=== PATIENT | male | born 1990 ===

== ENCOUNTER 2020-04-05 09:29 | Outpatient (REF) | payer OTHER, MEDICAID, SELFPAY ==
--- NOTE | 2020-04-05 | US_ITS ---
EXAMINATION: US ABDOMEN COMPLETE CLINICAL INFORMATION: Right upper quadrant pain. COMPARISON: None. TECHNIQUE: Real-time imaging of the abdominal viscera. FINDINGS: PANCREAS: The pancreas is partially obscured by overlying gas. ABDOMINAL AORTA: The proximal, mid, and distal segments are normal in caliber. INFERIOR VENA CAVA: Visualized portions are normal. LIVER: Normal. The liver is normal in size. The liver contour is normal. Parenchymal echogenicity is normal. No focal hepatic lesion. There is no intrahepatic biliary duct dilatation seen. GALLBLADDER: Normal. The gallbladder is physiologically distended without evidence of stones, sludge, polyps, wall thickening or pericholecystic fluid. COMMON BILE DUCT: Normal in caliber measuring 0.3 cm in diameter. RIGHT KIDNEY: There is an echogenic nonobstructive stone midpole measures 0.4 x 0.4 cm. No hydronephrosis or focal parenchymal lesions. The kidney measures 10.1 cm in maximum dimension. LEFT KIDNEY: A hypertrophied column of Drake is noted. No hydronephrosis. No renal calculi or focal parenchymal lesions. The kidney measures 10.1 cm in maximum dimension. SPLEEN: Normal. The spleen measures 9.2 cm in maximum dimension. FREE FLUID: None. US/US abdomen complete IMPRESSION: Nonobstructive echogenic stone midpole right kidney. Hypertrophied column of Drake left kidney. The rest of the abdominal ultrasound is unremarkable.
== END 2020-04-05 09:30 | disposition home or self-care (01) ==
LOC: HO.US 09:29
PROVIDERS: Visit Provider Nurse Practitioner
DX: R10.11 Right upper quadrant pain (principal)
CPT/HCPCS: 76700

== ENCOUNTER 2020-06-03 17:25 | Outpatient (REF) | payer MEDICAID, OTHER, SELFPAY | END 2020-06-03 17:26 | disposition home or self-care (01) | LOC: HO.LAB 17:25 | PROVIDERS: Visit Provider Internal Medicine | DX: Z20.822 Contact with and (suspected) exposure to COVID-19 (principal) | CPT/HCPCS: 36415; C9803; U0003 ==

== ENCOUNTER 2020-06-11 10:24 | Outpatient (REF) | payer MEDICAID, OTHER, SELFPAY | END 2020-06-11 10:25 | disposition home or self-care (01) | LOC: HO.LAB 10:24 | PROVIDERS: Visit Provider Internal Medicine | DX: Z20.822 Contact with and (suspected) exposure to COVID-19 (principal) | CPT/HCPCS: 36415; C9803; U0003 ==

== ENCOUNTER 2020-07-11 15:24 | Outpatient (REF) | payer MEDICAID, OTHER, SELFPAY | END 2020-07-11 15:25 | disposition home or self-care (01) | LOC: HO.LAB 15:24 | PROVIDERS: Visit Provider Internal Medicine | DX: Z20.822 Contact with and (suspected) exposure to COVID-19 (principal) | CPT/HCPCS: 36415; C9803; U0003; U0005 ==

== ENCOUNTER 2020-07-27 08:54 | Outpatient (REF) | payer MEDICAID, SELFPAY ==
--- NOTE | ~2020-07-27 | US_ITS ---
EXAMINATION: US ABDOMEN COMPLETE CLINICAL INFORMATION: Left-sided abdominal pain. COMPARISON: Ultrasound abdomen 04/05/2020. TECHNIQUE: Real-time imaging of the abdominal viscera. FINDINGS: PANCREAS: The head and body of pancreas is homogeneous in echotexture. The tail is obscured by overlying gas. ABDOMINAL AORTA: The proximal, mid, and distal segments are normal in caliber. INFERIOR VENA CAVA: Visualized portions are normal. LIVER: Normal. The liver is normal in size. The liver contour is normal. Parenchymal echogenicity is normal. No focal hepatic lesion. There is no intrahepatic biliary duct dilatation seen. GALLBLADDER: The gallbladder wall thickness measures 0.2 cm. The gallbladder is physiologically distended without evidence of stones, sludge, polyps, wall thickening or pericholecystic fluid. COMMON BILE DUCT: Normal in caliber measuring 0.3 cm in diameter. RIGHT KIDNEY: Normal. No hydronephrosis. No renal calculi or focal parenchymal lesions. The kidney measures 10.8 cm in maximum dimension. LEFT KIDNEY: Normal. No hydronephrosis. No renal calculi or focal parenchymal lesions. The kidney measures 10.6 cm in maximum dimension. SPLEEN: Normal. The spleen measures 10.3 cm in maximum dimension. FREE FLUID: None. US/US abdomen complete IMPRESSION: Unremarkable complete abdominal ultrasound. No right renal echogenic calculi seen as was noted on the previous study.
== END 2020-07-27 08:55 | disposition home or self-care (01) ==
LOC: HO.US 08:54
PROVIDERS: PCP Registered Nurse; Visit Provider Registered Nurse
DX: R10.9 Unspecified abdominal pain (principal); K59.00 Constipation, unspecified
CPT/HCPCS: 76700

== ENCOUNTER 2021-08-01 09:50 | Outpatient (REF) | payer OTHER, SELFPAY ==
[2021-08-01 10:16] LABS: MANUAL DIFF FLAG NO
[2021-08-01 10:41] LABS: Basophils Percent Auto 0.9 % (0-2); Eosinophils Absolute Auto 0.1 X10*3/uL (0.0-0.4); Hematocrit 45.5 % (42.0-52.0); Hemoglobin 15.2 g/dl (14.0-18.0); Imm Gran Abs Auto 0.01 X10*3/uL (0.00-0.03); Imm Gran Pct Auto 0.2 % (0.0-0.4); Lymphocytes Percent Auto 46.3 % (20-40); Mean Corpuscular HGB Conc 33.4 g/dl (31.0-36.0); Mean Corpuscular Hemoglobin 31.1 pg (27.0-33.0); Mean Corpuscular Volume 93.2 fL (80.0-98.0); Mean Platelet Volume 11.3 fL (9.4-12.4); Monocytes Absolute Auto 0.5 X10*3/uL (0.1-1.2); Neutrophils Absolute Auto 1.7 x10*3/uL (2.0-8.3); Neutrophils Percent Auto 38.6 % (45-73); Platelet Count 188 X10*3/uL (160-400); Red Blood Count 4.88 X10*6/uL (4.60-5.80); Red Cell Distribution Width 12.8 % (11.0-16.0); White Blood Count 4.4 X10*3/uL (4.8-10.8)
[2021-08-01 11:19] LABS: Alanine Aminotransferase 20 U/L (0-40); Albumin Level 4.5 g/dL (3.5-5.0); Alkaline Phosphatase 63 U/L (39-117); Anion Gap 14 (12-20); Aspartate Amino Transferase 18 U/L (5-37); Bilirubin Total 0.7 mg/dL (0.0-1.0); Blood Urea Nitrogen 21 mg/dL (9-16); Calcium 9.8 mg/dL (8.4-10.2); Carbon Dioxide 24 mmol/L (22-29); Chloride 105 mmol/L (96-108); Cholesterol 227 mg/dL; Estimated Glomerular Filt Rate > 60; Glucose Fasting 80 mg/dL (60-99); HDL Cholesterol 63 mg/dL; LDL Cholesterol Calculated 145 mg/dl; Potassium 4.4 mmol/L (3.3-5.1); Sodium 139 mmol/L (135-145); Total Protein 7.3 g/dL (6.5-8.0); Triglycerides 96 mg/dL
[2021-08-01 11:43] LABS: Free T4 (Free Thyroxine) 1.03 ng/dL (0.71-1.85); Thyroid Stimulating Hormone 1.46 uIU/mL (0.32-4.0)
== END 2021-08-01 09:51 | disposition home or self-care (01) ==
LOC: HO.LAB 09:50
PROVIDERS: PCP Internal Medicine; Visit Provider Internal Medicine
DX: R07.2 Precordial pain (principal); E66.3 Overweight
CPT/HCPCS: 36415; 80053; 80061; 84439; 84443; 85025

== ENCOUNTER 2021-08-08 13:09 | Outpatient (REF) | payer OTHER, SELFPAY ==
--- NOTE | ~2021-08-08 | XR_ITS ---
EXAMINATION: XR ABDOMEN KUB CLINICAL INDICATION: Constipation COMPARISON: None TECHNIQUE: AP view of the abdomen. FINDINGS: There is moderate stool burden. There are no dilated loops of bowel to suggest obstruction. There is no evidence of free air. There is a left pelvic calcification probably representing a calcified phlebolith. Bony structures are normal. XR/XR KUB IMPRESSION: Moderate stool burden.
--- NOTE | 2021-08-08 13:17 | ECG_ITS ---
Test Reason : PRECORDIAL PAIN Blood Pressure : / mmHG Vent. Rate : 056 BPM Atrial Rate : 056 BPM P-R Int : 138 ms QRS Dur : 082 ms QT Int : 384 ms P-R-T Axes : 067 052 030 degrees QTc Int : 370 ms Sinus bradycardia Otherwise normal ECG No previous ECGs available Referred By: Miladis Mills Electronically Signed By:FAY MYRICK
== END 2021-08-08 13:10 | disposition home or self-care (01) ==
LOC: HO.XRAY 13:09
PROVIDERS: Absent Provider Internal Medicine; PCP Internal Medicine; Visit Provider Nurse Practitioner Family
DX: R07.2 Precordial pain (principal); K59.01 Slow transit constipation
CPT/HCPCS: 74018; 93005

== ENCOUNTER 2021-08-15 10:36 | Emergency (ER) | payer OTHER, SELFPAY ==
[2021-08-15 10:49] VITALS: BP 122/63; PULSE 56; RESP 18; TEMP 36.6; O2SAT 99; BMI 28.7
--- NOTE | 2021-08-15 13:51 | ED_ITS ---
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 but does not recall any work-related injury His 2nd complaint is over mild see sometimes gets stomach pain after eating and he had episode of colitis a year ago in [place] and since then on occasion he has noticed blood on the toilet paper but no black stools no samson bleeding, no blood in the stool today no bleeding today, does not feel dizzy or weak Related Data Previous Rx's Medication Instructions Recorded castor oil 100 % oral 15 ml PO DAILY PRN 30 Days #177 ml 07/26/21 acetaminophen 500 mg tablet 1,000 mg PO QID PRN #30 tab 08/15/21 cyclobenzaprine 5 mg tablet 5 mg PO TID PRN #10 tab 08/15/21 docusate sodium 100 mg capsule 100 mg PO BID #30 cap 08/15/21 (Colace) famotidine 20 mg tablet (Pepcid) 20 mg PO DAILY PRN #14 tab 08/15/21 sennosides 8.6 mg tablet (senna) 8.6 mg PO BEDTIME PRN #30 tab 08/15/21 simethicone 125 mg capsule (Gas 125 mg PO BID-QID PRN 30 Days #120 08/15/21 Relief (simethicone)) cap Allergies Allergy/AdvReac Type Severity Reaction Status Date / Time No Known Allergies Allergy Verified 08/15/21 10:49 [No Known Allergies*] Review of Systems Review of Systems: Negatives are no fever no chills no dizziness no headache no neck pain no chest pain no numbness weakness or tingling no changes to bowel or bladder no incontinence no dysuria no chest pain no abdominal pain , no dysuria no skin rashes no joint pain Yes all other systems are reviewed and are negative PMFSH Past Medical History Source: nursing notes reviewed Medical History Abdominal gas pain Constipation by delayed colonic transit Overweight (BMI 25.0-29.9) Precordial chest pain Surgical History History of circumcision Maxillary fracture with routine healing Family History Family History Mother Essential hypertension Father Stroke Social History Social History Housing: House Alcohol intake: current Alcohol intake frequency: a few times a week Alcohol type: beer, wine and hard liquor Patient Tobacco Use Status: Former Tobacco user Tobacco use type: Cigarette e-Cigarette/Vaping Use: Never Used Second Hand Smoke Exposure: No Advance Directives: No Advance Directives Information Provided: No service: No Current occupational status: employed Current occupational exposures/hazards: No Cognitive needs: No Hearing needs: No Vision needs: No Physical Exam ED Vital Signs: Vital Signs - 24 hr 08/15/21 10:49 Temperature 97.8 F Pulse Rate 56 Respiratory Rate 18 Blood Pressure 122/63 Pulse Oximetry 99 BMI result Body Mass Index 28.7 General appearance is comfortable no acute distress Head is normocephalic atraumatic Eyes are anicteric with no pallor The pharynx mucous membranes are moist Neck is supple Chest clear to auscultation bilateral The abdomen is soft and nontender The back had lower lumbar paraspinal soft tissue tenderness no midline tenderness there is mild discomfort with bending Extremities are full range of motion x4 Neuro there are no new focal deficits, motor is 5/5 x4 sensation intact and symmetrical Course Course Course Narrative: Patient with musculoskeletal reproducible low back pain, no CVA tenderness no urinary symptoms is treated with Tylenol and muscle relaxer for the back pain His ongoing issue of abdominal pain after eating, bloating, intermittent red blood in the stool was evaluated by his primary care doctor who started some Ethicon and senna Labs were done on August 01 with normal LFTs, normal TSH, normal renal function, normal hemoglobin and hematocrit, no significant abnormality was found in the blood work done 2 weeks ago and patient has had no acute change, no heavy bleeding, not bleeding today so plan for this is I will start Pepcid to see if it helps is abdominal pain, Colace for his constipation and recommend follow with primary care doctor for probable referral to a law firm receptionist for colonoscopy due to was intermittentblood in the stool Patient is well appearing tolerating p.o. and is discharged Discharge Plan Discharge Clinical Impression: Back pain, Constipation, Blood in the stool, Dyspepsia Patient Disposition: Home, Self-Care Additional Instructions: Your back pain is likely a muscle irritation so we wrote for Tylenol and a muscle relaxer The ongoing problems with occasional blood on the toilet paper and stomach pain after eating and constipation should be followed with your doctor as you may need referral to a specialist for colonoscopy and possibly endoscopy for the rectal bleeding and stomach pain Follow with your doctor for both of these problems Return to ER any time any worse condition or any concerns Prescriptions: New famotidine [Pepcid] 20 mg tablet 20 mg PO DAILY PRN (Reason: Stomach acid pain) Qty: 14 0RF docusate sodium [Colace] 100 mg capsule 100 mg PO BID Qty: 30 0RF acetaminophen 500 mg tablet 1,000 mg PO QID PRN (Reason: pain) Qty: 30 0RF cyclobenzaprine 5 mg tablet 5 mg PO TID PRN (Reason: muscle spasm) Qty: 10 0RF Rx Instructions: This medication causes drowsiness no driving for 8 hours after taking No Action sennosides [senna] 8.6 mg tablet 8.6 mg PO BEDTIME PRN (Reason: constipation) Qty: 30 0RF simethicone [Gas Relief (simethicone)] 125 mg capsule 125 mg PO BID-QID PRN (Reason: abdominal distention) 30 Days Qty: 120 2RF castor oil 100 % oil 15 ml PO DAILY PRN (Reason: constipation) 30 Days Qty: 177 2RF Stand Alone Forms: Work/School Release Interventions: ED Discharge Assessment Last Done: 08/15/21 14:54 Discharge Date/Time: 08/15/21 14:55
--- NOTE | 2021-08-15 14:55 | PC.NURSE ---
PT EVALUATED BY PROVIDER. PLAN IS FOR DC HOME. PT DISCHARGED BY PROVIDER SIN HIDALGO
== END 2021-08-15 14:55 | disposition home or self-care (01) ==
PROVIDERS: Emergency Provider Emergency Medicine; PCP Internal Medicine
DX: M54.50 Low back pain, unspecified (principal); K92.1 Melena; R10.13 Epigastric pain
CPT/HCPCS: 99282; 99283

== ENCOUNTER → 2021-09-05 10:40 | Outpatient (BNVA) | payer OTHER, SELFPAY | PROVIDERS: PCP Internal Medicine; Referring Provider Internal Medicine; Visit Provider Physician Assistant | DX: K59.01 Slow transit constipation (principal); K62.5 Hemorrhage of anus and rectum; Z98.890 Other specified postprocedural states | CPT/HCPCS: 99202 ==

== ENCOUNTER 2021-12-03 08:17 | Emergency (ER) | payer OTHER, SELFPAY ==
[2021-12-03 08:25] VITALS: BP 100/80; PULSE 88; RESP 14; TEMP 37.7; O2SAT 96; BMI 30.9
[2021-12-03] MEDS: Ibuprofen 600 MG TABLET PO (08:36)
[2021-12-03 08:52] LABS: Strep A Nucleic Acid Negative (Negative)
[2021-12-03 08:53] LABS: COVID-19 Test Positive (Negative); IDNOW Serial# 16C4AD1C
--- NOTE | 2021-12-03 09:02 | ED_ITS ---
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 Took COVID test and it was positive. Here due to concern for continued symptoms. Last episode of vomiting last night. No abdominal pain, difficulty breathing, shortness of breath, neck stiffness/pain, skin rash. Patient had 1 J&J vaccine for COVID Related Data Previous Rx's Medication Instructions Recorded acetaminophen 500 mg tablet 1,000 mg PO QID PRN pain #30 tabs 08/15/21 simethicone 125 mg capsule (Gas 125 mg PO BID-QID PRN abdominal 08/15/21 Relief (simethicone)) distention 30 days #120 caps fluconazole 150 mg tablet 150 mg PO Q3D 2 doses #2 tabs 08/22/21 (Diflucan) lactulose 10 gram/15 mL oral 10 g (15 mL) PO BEDTIME PRN 08/22/21 solution constipation 90 days #473 mL bisacodyl 5 mg tablet,delayed 10 mg PO ONCE colonoscopy prep 1 09/05/21 release (Dulcolax (bisacodyl)) day #2 tabs hydrocortisone 2.5 % topical cream 1 appl RI BEDTIME PRN hemorrhoids 09/05/21 with perineal applicator #30 grams (Proctosol HC) polyethylene glycol 3350 17 238 g PO ONCE 1 day #238 grams 09/05/21 gram/dose oral powder (Miralax) Allergies Allergy/AdvReac Type Severity Reaction Status Date / Time No Known Allergies Allergy Verified 09/05/21 10:44 [No Known Allergies*] Review of Systems Review of Systems: Yes all other systems are reviewed and are negative Constitutional: Constitutional: Reports no additional constitutional complaints, Reports body ache(s), Denies chills, Reports fever(s), Reports headache(s) and Denies weakness Eyes: Eyes: Reports no additional eye complaints and Denies change in vision ENT: Reports system reviewed and no additional complaints, except as documented, Denies dizziness, Reports headache(s), Denies nasal congestion, Denies nasal discharge, Denies neck pain and Reports sore throat Cardiovascular: Cardiovascular: Reports no additional cardiovascular complaints, Denies chest pain, Denies leg edema and Denies dyspnea Respiratory: Respiratory: Reports no additional respiratory complaints, Re ports cough and Denies dyspnea Gastrointestinal: Gastrointestinal: Reports no additional gastrointestinal complaints, Denies abdominal pain, Reports diarrhea, Reports nausea and Reports vomiting Genitourinary: Genitourinary: Denies urinary incontinence Musculoskeletal: Musculoskeletal: Reports no additional musculoskeletal complaints, Denies back pain, Denies arthralgias, Denies joint swelling, Denies neck pain, Denies numbness and Denies tingling Integumentary/Breasts: Skin/Breast: Reports system reviewed and no additional complaints, except as docu and Denies rash Neurologic: Reports system reviewed and no additional complaints, except as documented, Denies Abnormal speech present, Denies dizziness, Reports headache(s), Denies numbness, Denies tingling and Denies weakness PMFSH Past Medical History Attestation statement: The following information was validated with the patient. Source: old records reviewed and nursing notes reviewed Medical History Abdominal gas pain Bloody stools Constipation by delayed colonic transit Hospital discharge follow-up Lumbar pain Overweight (BMI 25.0-29.9) Precordial chest pain Pterygium Rectal bleeding Surgical History History of circumcision Maxillary fracture with routine healing Family History Family History Mother Essential hypertension Father Stroke Social History Social History Housing: House Alcohol intake: current Alcohol intake frequency: a few times a week Alcohol type: beer, wine and hard liquor Patient Tobacco Use Status: Former Tobacco user Tobacco use type: Cigarette e-Cigarette/Vaping Use: Never Used Second Hand Smoke Exposure: No Advance Directives: No Advance Directives Information Provided: No service: No Current occupational status: employed Current occupational exposures/hazards: No Cognitive needs: No Hearing needs: No Vision needs: No Physical Exam Vital Signs: Vital Signs: Last Vital Signs Temp 99.9 F 12/03/21 08:25 Pulse 88 12/03/21 08:25 Resp 14 12/03/21 08:25 BP 100/80 12/03/21 08:25 Pulse Ox 96 12/03/21 08:25 O2 Del Method 12/03/21 08:25 BMI result Body Mass Index 30.9 Const: General: cooperative, healthy appearing, comfortable and no acute distress Orientation/consciousness: patient oriented x3 Limitations: no limitations HEENT: Head: Yes normal to inspection Ears: hearing grossly normal bilaterally and TM's normal bilaterally General nose exam: Normal external nose present Face and sinus: Yes normal facial exam Mouth: Normal oral and palatal mucosa present Throat: Yes posterior oropharynx normal, Yes tonsils normal and Yes uvula midline Eyes: General: appearance normal, both eyes and all related structures Pupils: Equal, round and reactive pupils present Neck: Neck: Yes normal visual inspection, Yes full ROM, Yes no lymphadenopathy and Yes no meningeal signs Chest: Chest palpation & inspection: normal inspection of the chest Resp: Effort & Inspection: normal respiratory effort Auscultation: clear to auscultation bilaterally Cardio: Rate: regular rate Rhythm: regular rhythm Peripheral pulses: Peripheral pulses 2+ throughout GI: Inspection: Yes normal to inspection Palpation (GI): Soft to palpation and nontender Auscultation: normal bowel sounds Back/Spine/Pelvis: Thoracic/Lumbar Spine: thoracic and lumbar spine normal to inspection Skin: General skin exam: no rashes or lesions noted Neuro: General: patient oriented x3, no meningeal signs, no focal motor deficits and normal sensation to monofilament Cranial nerves: Yes Equal, round and reactive pupils present Cognition (Neuro): normal cognition Speech: No Abnormal speech present Gait exam (Neuro): Normal gait present Motor exam (neuro): 5/5 motor strength present throughout Extrem: General: Yes normal to inspection Course Course Course Narrative: COVID screen is positive. Patient has no hypoxia or tachypnea. His lungs are clear. Overall he is well-appearing. We discussed supportive care at home. Reviewed worrisome signs and symptoms of when to return to the emergency department. Comfortable discharge home. MDM - URI/Sore Throat MDM Narrative Medical decision making narrative: 31-year-old male here with viral symptoms since Saturday of last week. Patient to home COVID test and it was positive. He is here due to continued symptoms. On arrival patient has stable vital signs. He has a low-grade temperature of 99.9 degrees. His exam is overall benign. Lungs are clear. Abdomen soft and nontender. No meningeal sign or lymphadenopathy. Will check COVID test, strep testing Differential Diagnosis Differential diagnosis: Likely upper respiratory infection and pharyngitis Medical Records Attestation: I reviewed the patient's medical records. Lab Data Attestation: I reviewed the patient's lab results. Labs: Lab Results 12/03/21 12/03/21 Range/Units 08:35 08:35 COVID-19 (SKYLER) Positive A (Negative) COVID-19 Clin Com See Note S. pyogenes GrpA ROGER Negative (Negative) Discharge Plan Discharge Clinical Impression: COVID Patient Disposition: Home, Self-Care Instructions: COVID-19 (Coronavirus Disease 2019) (ED) Additional Instructions: Debe estar en cuarentena veronica 5 d?as ivone estar berry de fiebre veronica 24 horas antes de detener la cuarentena. Alterne Motrin o Tylenol para el dolor o la fiebre Aumentar l?quidos, descansar Regrese por dificultad para respirar, dolor en el pecho, fiebre que no responde a Motrin o Tylenol Prescriptions: No Action simethicone [Gas Relief (simethicone)] 125 mg capsule 125 mg PO BID-QID PRN (Reason: abdominal distention) 30 Days Qty: 120 2RF acetaminophen 500 mg tablet 1,000 mg PO QID PRN (Reason: pain) Qty: 30 0RF lactulose 10 gram/15 mL solution 10 g PO BEDTIME PRN (Reason: constipation) 90 Days Qty: 473 1RF fluconazole [Diflucan] 150 mg tablet 150 mg PO Q3D Qty: 2 0RF bisacodyl [Dulcolax (bisacodyl)] 5 mg tablet,delayed release (DR/EC) 10 mg PO ONCE 1 Days Qty: 2 0RF Rx Instructions: Take 2 tablets by mouth at 12:00pm the day before your procedure. polyethylene glycol 3350 [Miralax] 17 gram/dose powder 238 g PO ONCE 1 Days Qty: 238 0RF Rx Instructions: Take as directed by mouth the day before your procedure. hydrocortisone [Proctosol HC] 2.5 % cream with perineal applicator 1 appl RI BEDTIME PRN (Reason: hemorrhoids) Qty: 30 3RF Referrals: Miladis Field MD [Primary Care Provider] - 1 week (as needed) Interventions: ED Discharge Assessment Last Done: 12/03/21 09:19 Discharge Date/Time: 12/03/21 09:33 Print Language: Ukrainian
== END 2021-12-03 09:33 | disposition home or self-care (01) ==
PROVIDERS: Emergency Provider Emergency Medicine; PCP Internal Medicine
DX: U07.1 COVID-19 (principal); Z79.899 Other long term (current) drug therapy; Z87.891 Personal history of nicotine dependence
CPT/HCPCS: 87635; 87651; 99283

== ENCOUNTER 2022-01-25 07:56 | Day surgery (SDC) | payer OTHER, SELFPAY ==
--- NOTE | 2022-01-24 11:46 | HO.ANESPROP2 ---
Documented by User: Emmie Tyler NP 01/24/22 11:47 HPI - Anesthesia Eval Consult details Narrative: 31yo M for Colonoscopy PMFSH Active Problems Active Problems: All Active Problems (Updated 12/03/21 @ 09:04 by Elda Cordova NP) COVID (Acute) History of colonoscopy (Acute) Rectal bleeding (Acute) Hospital discharge follow-up (Acute) Lumbar pain (Acute) Pterygium (Acute) Bloody stools (Acute) Abdominal gas pain (Acute) Overweight (BMI 25.0-29.9) (Acute) Precordial chest pain (Acute) Constipation by delayed colonic transit (Acute) Past Medical History Medical History Abdominal gas pain Bloody stools Constipation by delayed colonic transit Hospital discharge follow-up Lumbar pain Overweight (BMI 25.0-29.9) Precordial chest pain Pterygium Rectal bleeding Family History Family History Mother Essential hypertension Father Stroke Surgical History Surgical History History of circumcision Maxillary fracture with routine healing Social History Social History Housing: House Alcohol intake: current Alcohol intake frequency: a few times a week Alcohol type: beer, wine and hard liquor Patient Tobacco Use Status: Current everyday Tobacco user Tobacco use type: Cigarette e-Cigarette/Vaping Use: Never Used Second Hand Smoke Exposure: No service: No Current occupational status: employed Current occupational exposures/hazards: No Cognitive needs: No Hearing needs: No Vision needs: No Meds Allergies Allergy/AdvReac Type Severity Reaction Status Date / Time No Known Allergies Allergy Verified 09/05/21 10:44 [No Known Allergies*] Exam Exam Date and Time: January 24, 2022 1146 Pertinent Lab Results Pertinent Lab Results: Laboratory Tests 08/01/21 08/01/21 10:14 10:14 WBC 4.4 L Hgb 15.2 Hct 45.5 Plt Count 188 Sodium 139 Potassium 4.4 Chloride 105 Carbon Dioxide 24 BUN 21 H Creatinine 1.08 Narrative Narrative: EKG 07/2021 Vent. Rate : 056 BPM ? ? Atrial Rate : 056 BPM ?? P-R Int : 138 ms? QRS Dur : 082 ms ? ? QT Int : 384 ms ? ? ? P-R-T Axes : 067 052 030 degrees ?? QTc Int : 370 ms ? Sinus bradycardia Otherwise normal ECG No previous ECGs available ? Assessment and Plan Assessment Anesthesia Assessment: Chart Reviewed Documented by User: Gold Clay MD 01/25/22 16:55 PMFSH Past Medical History Medical History Abdominal gas pain Bloody stools Constipation by delayed colonic transit Hospital discharge follow-up Lumbar pain Overweight (BMI 25.0-29.9) Precordial chest pain Pterygium Rectal bleeding Functional capacity: independent ambulation Family History Family History Mother Essential hypertension Father Stroke Family history of problems with anesthesia: No Surgical History Surgical History History of circumcision Maxillary fracture with routine healing History of Problems with Anesthesia: No Social History Social History Housing: House Alcohol intake: current Alcohol intake frequency: a few times a week Alcohol type: beer, wine and hard liquor Patient Tobacco Use Status: Current everyday Tobacco user Tobacco use type: Cigarette e-Cigarette/Vaping Use: Never Used Second Hand Smoke Exposure: No service: No Current occupational status: employed Current occupational exposures/hazards: No Cognitive needs: No Hearing needs: No Vision needs: No Meds Allergies Allergy/AdvReac Type Severity Reaction Status Date / Time No Known Allergies Allergy Verified 09/05/21 10:44 [No Known Allergies*] Exam Airway Mallampati Class: III TM Dist: >3cm Neck ROM: Full Loose/Missing/Broken Teeth: Yes ([place]illings ) Heart: S1,S2 Lungs: b/l breath sounds Assessment and Plan Assessment Anesthesia Assessment: Anesthesia Plan Discussed Final Anesthetic Review Family History of Problems with Anesthesia: No History of Problems with Anesthesia: No NPO: Yes ASA Class: II Final Preanesthetic Review: Meds/Allgs Chart Reviewed, Consent Obtained/Reviewed and Anes Risks/Benef Reviewed Patient Risk: Intermediate Procedure Risk: Intermediate Anesthetic Plan Anesthetic Plan: MAC: Disposition: Standard PACU
[2022-01-25 08:25] VITALS: BP 122/78; PULSE 56; RESP 16; TEMP 36.7; O2SAT 99
[2022-01-25 08:27] VITALS: BMI 20.9
[2022-01-25 08:32] VITALS: BMI 30.9
[2022-01-25] MEDS: Lactated Ringers 1,000 ML 100 ML IVCONT (08:54)
--- NOTE | 2022-01-25 08:59 | MHC.SHP ---
Pre-Procedural Eval Section A Date of Service: 01/25/22 Section B Chief Complaint: abdominal pain and colitis Relevant Family History (Specify if Yes): No Relevant Social History: None Present Medications: see Short Stay Collaborative assessment Medical History: Significant History (Abdominal gas pain Bloody stools Constipation by delayed colonic transit Hospital discharge follow-up Lumbar pain Overweight (BMI 25.0-29.9) Precordial chest pain Pterygium Rectal bleeding) History of Previous Operations: Relevant previous surgery/procedure and date(s) (History of circumcision Maxillary fracture with routine healing) Allergies: Allergies Allergy/AdvReac Type Severity Reaction Status Date / Time No Known Allergies Allergy Verified 09/05/21 10:44 [No Known Allergies*] Review of Systems Sugical H&P ROS: Negative: Constitution, Cardiovascular, Respiratory, Neurological, Psychiatric, Hem-Onc, Allergic/Immunologic, Gastrointestinal, Genitourinary, Musculoskeletal, Integumentary, Endocrine and Eyes/Ears/Nose/Throat Exam Surgical H&P Exam: Normal: HEENT, Normal: Heart, Normal: Lungs, Normal: Extremities, Normal: Abdomen, Normal: Skin and Normal: Neurological Plan Diagnosis/Plan: Unchanged I have reviewed the history and physical and performed a pertinent physical examination on my patient. No changes have occurred unless specified.
--- NOTE | 2022-01-25 09:20 | W.PM.OPN ---
Operative Note Operative Note Date of Service: 01/25/22 Narrative: Operative Information Procedure Description: Colonoscopy Indication: abdominal pain and rectal bleeding Anesthesia: MAC COLONOSCOPY Instrument: Olympus variable stiffness pediatric scope 190L Colonoscopy Monitoring: Vital signs and clinical assessment, continuous EKG monitoring, Pulse oximetry, Carbon Dioxide monitoring and blood pressure monitoring were done throughout the procedure. Colon withdrawal time was [] minutes. Procedure: The patient was placed in the left lateral decubitis position and pre-procedure medications were administered. After a digital rectal examination of the ano-rectum, the video colonoscope was inserted into the rectum and advanced through the colon to the cecum/TI. The colonoscope was slowly withdrawn in a retrograde panoramic fashion and the colon mucosa was carefully examined including a retroflexed view of the rectum. Findings and interventions are described below. Procedure Difficulty: easy Findings: Terminal Ileum-normal, bx taken Right sided retroflexion--normal Cecum:normal Ascending Colon: normal, random bx taken Transverse Colon -normal Descending Colon:normal, random bx taken Sigmoid Colon: mild patchy erythema, bx taken Rectum: Retroflexion with small internal hemorrhoids, grade I, random bx taken Anorectum - normal Colon preparation: Mouthcard Bowel Preparation Scale Right colon; 3 Transverse colon: 3 Left colon; 3 (0 = Unprepared colon segment with mucosa not seen due to solid stool that cannot be cleared. 1 = Portion of mucosa of the colon segment seen, but other areas of the colon segment not well seen due to staining, residual stool and/or opaque liquid. 2 = Minor amount of residual staining, small fragments of stool and/or opaque liquid, but mucosa of colon segment seen well. 3 = Entire mucosa of colon segment seen well with no residual staining, small fragments of stool or opaque liquid) Impression and Post Procedure Diagnosis: internal hemorrhoids patchy erythema, non specific Plan: High fiber diet leaflet Avoid straining at stool, epsom salts and sitz bath, anusol supps or cream Repeat Colonoscopy aged 45 years or earlier if clinically indicated can consider trial of bentyl if ongoing lower left abdo pain, also can consider US to r/o renal etiology Above findings were reviewed with the patient and relevant handouts were provided if indicated.
[2022-01-25 09:52] VITALS: BP 97/57; PULSE 73; RESP 16; TEMP 36.8; O2SAT 96
[2022-01-25 10:07] VITALS: BP 110/71; PULSE 55; RESP 16; TEMP 36.1; O2SAT 100
[2022-01-25 10:22] VITALS: BP 123/73; PULSE 50; RESP 16; TEMP 35.9; O2SAT 100
== END 2022-01-25 11:12 | disposition home or self-care (01) ==
PROVIDERS: PCP Internal Medicine; Visit Provider Internal Medicine Gastroenterology
PROC: 0DJD8ZZ Inspection of Lower Intestinal Tract, Via Natural or Artificial Opening Endoscopic (ICD-10-PCS; CPT 45378; principal; 2022-01-25 09:00)
DX: R10.9 Unspecified abdominal pain (principal); K62.5 Hemorrhage of anus and rectum; K59.01 Slow transit constipation; K64.0 First degree hemorrhoids; E66.3 Overweight; Z68.25 Body mass index [BMI] 25.0-25.9, adult; Z79.899 Other long term (current) drug therapy; F17.210 Nicotine dependence, cigarettes, uncomplicated; Z98.890 Other specified postprocedural states
CPT/HCPCS: 45380; 88305

== ENCOUNTER → 2022-02-06 12:43 | Outpatient (BNVA) | payer OTHER, MEDICAID, SELFPAY | PROVIDERS: PCP Internal Medicine; Referring Provider Internal Medicine; Visit Provider Physician Assistant | DX: K59.01 Slow transit constipation (principal); K58.9 Irritable bowel syndrome, unspecified; K64.8 Other hemorrhoids; Z98.890 Other specified postprocedural states | CPT/HCPCS: 99212 ==

== ENCOUNTER 2024-04-17 16:12 | Emergency (ER) | payer OTHER, SELFPAY ==
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
[2024-04-17 16:24] VITALS: BP 125/72; PULSE 61; RESP 18; TEMP 36.7; O2SAT 98; BMI 31.6
[2024-04-17] MEDS: Cyclobenzaprine HCl 10 MG TABLET PO (19:37)
[2024-04-17] MEDS: Lidocaine 4 % Patch ADH..PATCH 1 PATCH TRANSDERMA (19:37)
[2024-04-17] MEDS: Ketorolac Tromethamine 30 MG/ML VIAL IM (19:40)
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
[2024-04-17 19:56] VITALS: BP 125/72; PULSE 61; RESP 18; TEMP 36.7; O2SAT 98
== END 2024-04-17 19:58 | disposition home or self-care (01) ==
PROVIDERS: Emergency Provider Emergency Medicine
DX: S16.1XXA Strain of muscle, fascia and tendon at neck level, initial encounter (principal); V43.52XA Car driver injured in collision with other type car in traffic accident, initial encounter; Y93.89 Activity, other specified; Y92.414 Local residential or business street as the place of occurrence of the external cause; Y99.9 Unspecified external cause status
CPT/HCPCS: 70450; 72125; 96372; 99283; 99284; J1885

== ENCOUNTER 2024-12-09 15:44 | Emergency (ER) | payer OTHER, SELFPAY ==
--- NOTE | ~2024-12-09 | XR_ITS ---
EXAMINATION: XR LUMBOSACRAL SPINE CLINICAL INFORMATION: trauma COMPARISON: None available. TECHNIQUE: Three views of the lumbosacral spine. FINDINGS: The vertebral bodies and posterior elements are normal. The disc spaces are preserved and the vertebral alignment is normal. The paraspinal soft tissues are normal. XR/XR lumbar spine 2-3V IMPRESSION: Unremarkable examination. Electronically signed by: Asim Feldman MD 12/09/2024 04:20 PM EDT
--- NOTE | ~2024-12-09 | XR_ITS ---
EXAMINATION: XR SHOULDER, LEFT CLINICAL INFORMATION: pain COMPARISON: None available. TECHNIQUE: AP external rotation, Grashey, scapular Y, and axillary views of the left shoulder. FINDINGS: The bones and soft tissues are normal. No fracture. Glenohumeral and acromioclavicular alignment is anatomic with normal joint space. No abnormal soft tissue calcifications. XR/XR shoulder LT min 2V IMPRESSION: Unremarkable left shoulder Electronically signed by: Asim Feldman MD 12/09/2024 04:19 PM EDT
[2024-12-09 15:50] VITALS: BP 113/63; PULSE 64; RESP 16; TEMP 36.5; O2SAT 96; BMI 30.9
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
[2024-12-09 19:10] VITALS: BP 99/57; PULSE 53; RESP 20; TEMP 36.7; O2SAT 97
[2024-12-09 19:57] VITALS: BP 99/57; PULSE 53; RESP 20; TEMP 36.7; O2SAT 97
== END 2024-12-09 19:58 | disposition home or self-care (01) ==
PROVIDERS: Emergency Provider Emergency Medicine
DX: S13.4XXA Sprain of ligaments of cervical spine, initial encounter (principal); V43.52XA Car driver injured in collision with other type car in traffic accident, initial encounter; Y93.9 Activity, unspecified; Y92.410 Unspecified street and highway as the place of occurrence of the external cause; Y99.9 Unspecified external cause status; M25.512 Pain in left shoulder
CPT/HCPCS: 72100; 73030; 96372; 96374; 99284; J1885

== ENCOUNTER → 2024-12-09 15:52 | Outpatient (BNV) | payer OTHER, SELFPAY | PROVIDERS: Visit Provider Radiology Diagnostic Radiology | DX: M54.50 Low back pain, unspecified (principal); M25.512 Pain in left shoulder | CPT/HCPCS: 72100; 73030 ==